=== PATIENT | female | born 1960 | race Caucasian/White ===

== ENCOUNTER → 2021-05-02 14:36 | Outpatient (CLI) | payer OTHER, SELFPAY | PROVIDERS: PCP Student in an Organized Health Care Education/Training Program; Referring Provider Student in an Organized Health Care Education/Training Program; Visit Provider Student in an Organized Health Care Education/Training Program | DX: Z78.0 Asymptomatic menopausal state (principal); Z13.820 Encounter for screening for osteoporosis; M81.0 Age-related osteoporosis without current pathological fracture | CPT/HCPCS: 77080 ==

== ENCOUNTER → 2021-05-07 17:03 | Outpatient (CLI) | payer OTHER, SELFPAY ==
--- NOTE | 2021-05-07 | DI.MG.S_ITS ---
BILATERAL DIGITAL SCREENING MAMMOGRAM 3D/2D WITH CAD: 05/07/2021 CLINICAL: Routine screening. Comparison is made to exams dated: 09/07/2017 mammogram, 06/05/2015 mammogram, 06/05/2015 ultrasound, and 02/02/2015 mammogram - outside location. The tissue of both breasts is heterogeneously dense. This may lower the sensitivity of mammography. Current study was also evaluated with a Computer Aided Detection (CAD) system. There are benign post operative findings in the right breast. No significant masses, calcifications, or other findings are seen in either breast. There has been no significant interval change. IMPRESSION: BENIGN There is no mammographic evidence of malignancy. A 1 year screening mammogram is recommended. This exam was interpreted at Station ID: [id number]. NOTE: For mammograms, a report in lay terms will be sent to the patient. Approximately 15% of breast malignancies will not be visualized mammographically. In the management of a palpable breast mass, a negative mammogram must not discourage biopsy of a clinically suspicious lesion. Electronically Signed By: Gwendolyn boone/rita:05/08/2021 09:20:16 letter sent: Normal Exam ACR BI-RADS Category 2: Benign Finding(s) 3342F
== END ==
PROVIDERS: PCP Student in an Organized Health Care Education/Training Program; Referring Provider Student in an Organized Health Care Education/Training Program; Visit Provider Student in an Organized Health Care Education/Training Program
DX: Z12.31 Encounter for screening mammogram for malignant neoplasm of breast (principal)
CPT/HCPCS: 77063; 77067

== ENCOUNTER → 2021-07-03 13:59 | Outpatient (CLI) | payer OTHER, SELFPAY ==
[2021-07-03 15:16] LABS: COVID19 -Nasal RAPID Negative (Negative)
== END ==
PROVIDERS: PCP Student in an Organized Health Care Education/Training Program; Visit Provider Family Medicine Sleep Medicine
DX: Z01.812 Encounter for preprocedural laboratory examination (principal); Z20.822 Contact with and (suspected) exposure to COVID-19
CPT/HCPCS: 87635; C9803

== ENCOUNTER → 2021-07-24 14:04 | Outpatient (CLI) | payer OTHER, SELFPAY ==
[2021-07-24 14:33] LABS: COVID19 -Nasal RAPID Negative (Negative)
== END ==
PROVIDERS: PCP Student in an Organized Health Care Education/Training Program; Referring Provider Student in an Organized Health Care Education/Training Program; Visit Provider Student in an Organized Health Care Education/Training Program
DX: Z20.822 Contact with and (suspected) exposure to COVID-19 (principal)
CPT/HCPCS: 87635; C9803

== ENCOUNTER 2021-07-26 12:26 | Day surgery (SDC) | payer OTHER, SELFPAY ==
--- NOTE | 2021-07-26 12:12 | PM.PREOP ---
Pre-operative Note COVID-19 COVID-19 status: Negative Result date/Date tested (Pos, Neg/Pending): 07/24/21 Interval Note History & Physical reviewed/Exam performed by Physician: Yes Changes to H&P: No ASA Class (for procedural sedation): II
--- NOTE | 2021-07-26 12:13 | PM.OP.COLON ---
Operative Date/Time/Diagnoses Date of procedure: 07/26/21 Procedure Notes SCOAP/Timeout: 1:52 p.m. Procedure in detail: ENDOSCOPIST: Masha Cruz MD Sedation RN: Salma Rutledge RN Sedation start time: 1:53 p.m. Sedation end time: 2:21 p.m. PROCEDURE: Colonoscopy INDICATIONS: 1. Family history of colon cancer, father 2. Screening for colon cancer MEDICATION: Levsin 0.125 mg sublingual, incremental doses of Versed and fentanyl until appropriate level sedation achieved. ASA CLASS: 2 CECAL WITHDRAWAL TIME: 6 minutes COMPLICATIONS: None. EXTENT OF PROCEDURE: Cecum. QUALITY OF PREP: Good with portions of liquid stool. PROCEDURE: Prior to insertion of the colonoscope, a digital rectal examination was accomplished with circumferential palpation of the distal rectal mucosa without significant findings being noted. The high-definition pediatric colonoscope was passed into the rectum in the usual fashion and advanced over to the cecum without difficulty. The ileocecal valve, appendiceal stoma, and medial wall all could be inspected and no abnormalities were seen. ASCENDING COLON: As the colonoscope was withdrawn, care was taken to expose and inspect the haustral folds and no abnormalities were seen. HEPATIC FLEXURE: Normal, no polyps, diverticula or other abnormalities. TRANSVERSE COLON: Normal, no polyps, diverticula or other abnormalities. DESCENDING COLON: Normal, no polyps, diverticula or other abnormalities. SIGMOID COLON: Normal, no polyps, diverticula or other abnormalities. RECTUM: Normal. J maneuver was produced. There was no significant perianal disease. The J maneuver was broken. The remainder of the rectum was inspected and there was no external hemorrhoid disease. The scope was withdrawn. IMPRESSION: 1. Normal colonoscopy PLAN: 1. Repeat colonoscopy in 5 years. The possibility of a missed lesion including a malignancy has been discussed with the patient previously. Potential alarm symptoms have been discussed and should be reported immediately.
[2021-07-26 12:40] VITALS: BP 118/75; PULSE 83; RESP 16; TEMP 36.8; O2SAT 97; BMI 22.3
[2021-07-26] MEDS: LACTATED RINGERS 1,000 ML 200 ML IV (13:12)
[2021-07-26] MEDS: HYOSCYAMINE 0.125 MG TABLET PO (13:14)
[2021-07-26] MEDS: fentaNYL 250 MCG/5 ML INJ 125 MCG IV (14:22)
[2021-07-26] MEDS: MIDAZOLAM 5 MG/5 ML VIAL IV (14:22)
[2021-07-26 14:27] VITALS: BP 122/71; PULSE 73; RESP 18; TEMP 36.6; O2SAT 99
[2021-07-26 14:32] VITALS: BP 114/71; PULSE 72; RESP 14; O2SAT 100
[2021-07-26 14:35] VITALS: BP 116/68; PULSE 69; RESP 18; O2SAT 99
[2021-07-26 14:47] VITALS: BP 128/83; PULSE 76; RESP 14; O2SAT 100
[2021-07-26 14:58] VITALS: BP 136/80; PULSE 78; RESP 16; TEMP 36.4; O2SAT 98
== END 2021-07-26 15:08 | disposition home or self-care (01) ==
PROVIDERS: PCP Student in an Organized Health Care Education/Training Program; Referring Provider Student in an Organized Health Care Education/Training Program; Visit Provider Student in an Organized Health Care Education/Training Program
PROC: 0DJD8ZZ Inspection of Lower Intestinal Tract, Via Natural or Artificial Opening Endoscopic (ICD-10-PCS; CPT 45378; principal; 2021-07-26 13:45)
DX: Z12.11 Encounter for screening for malignant neoplasm of colon (principal); Z80.0 Family history of malignant neoplasm of digestive organs
CPT/HCPCS: 45378; J2250; J3010

== ENCOUNTER → 2023-07-09 15:16 | Outpatient (CLI) | payer OTHER, SELFPAY ==
--- NOTE | 2023-07-09 15:17 | DI.RAD.S_ITS ---
PROCEDURE: XR DEXA AXIAL SKELETON INDICATIONS: Asymptomatic menopausal state COMPARISON: [facility], CR, XR DEXA AXIAL SKELETON, 05/02/2021, 15:05. FINDINGS: Lumbar Spine: Bone mineral density is 0.734 g/cm2, T score -2.8, statistically significant increase when compared to the prior exam by 10.0 %. Left Hip: Bone mineral density 0.694 g/cm2, T score -2.0, statistically significant increased when compared to the prior exam by 10.2 %. Left Femoral Neck: Bone mineral density is 0.592 g/cm2, T score -2.3. Right Hip: Bone mineral density is 0.667 g/cm2, T score -2.3, statistically significant increase when compared to the prior exam by 8.1 %. Right Femoral Neck: Bone mineral density is 0.571 g/cm2, T score -2.5. Fracture Risk Calculation (when applicable): FRAX score not reported due to osteoporosis. (T score greater or equal to -1.0 to: NORMAL) (T score from -1.1 to -2.4: OSTEOPENIA) (T score less than or equal to -2.5: OSTEOPOROSIS) IMPRESSION: 1. By WHO criteria, the patient has osteoporosis. 2. Interval statistically significant increase in bone mineral density of the lumbar spine and bilateral hips when compared to the exam from 05/02/2021. Follow-up guidelines as follows: Osteoporosis: Consider a repeat DEXA and Vertebral Fracture Assessment (VFA) exam in 2 years or sooner if medically necessary, to reassess this patient's status. Osteopenia: Consider a repeat DEXA in 2-3 years to reassess this patient's status, or if there is a new clinical indication. Normal: Consider a repeat DEXA in 5 years or sooner, or if there is a new clinical indication. Approved by: Angel Nelson M.D. on 07/09/2023 at 22:01
--- NOTE | 2023-07-09 15:17 | DI.MG.S_ITS ---
BILATERAL DIGITAL SCREENING MAMMOGRAM 3D/2D WITH CAD: 07/09/2023 CLINICAL: Routine screening. Family history of breast cancer. Comparison is made to exams dated: 05/07/2021 mammogram - [facility] and 09/07/2017 mammogram - outside location. Both breasts are heterogeneously dense, which may obscure small masses (category c / 51-75% glandular tissue). Current study was also evaluated with a Computer Aided Detection (CAD) system. There are benign post operative findings and biopsy clip in the right breast. No significant masses, calcifications, or other findings are seen in either breast. There has been no significant interval change. IMPRESSION: BENIGN There is no mammographic evidence of malignancy. A 1 year screening mammogram is recommended. Based on the Tyrer Cuzick model (a risk assessment model) the patient's lifetime risk is 19.6% and her 10 year risk is 9.1%. According to the ACR, ACS, and NCCN guidelines, an annual breast MRI exam along with mammogram is recommended if the patient's lifetime risk is 20% or greater. This exam was interpreted at Station ID: [id number]. NOTE: For mammograms, a report in lay terms will be sent to the patient. Approximately 15% of breast malignancies will not be visualized mammographically. In the management of a palpable breast mass, a negative mammogram must not discourage biopsy of a clinically suspicious lesion. Electronically Signed By: Rasheed alfredo/rita:07/10/2023 10:04:20 letter sent: Normal Exam ACR BI-RADS Category 2: Benign Finding(s) 3342F
== END ==
PROVIDERS: PCP Registered Nurse; Referring Provider Registered Nurse; Visit Provider Registered Nurse
DX: Z12.31 Encounter for screening mammogram for malignant neoplasm of breast (principal); Z80.3 Family history of malignant neoplasm of breast; R92.333 Mammographic heterogeneous density, bilateral breasts; Z13.820 Encounter for screening for osteoporosis; M81.0 Age-related osteoporosis without current pathological fracture; Z78.0 Asymptomatic menopausal state
CPT/HCPCS: 77063; 77067; 77080

== ENCOUNTER → 2024-11-12 08:12 | Outpatient (CLI) | payer OTHER, SELFPAY ==
--- NOTE | 2024-11-12 08:14 | DI.MG.S_ITS ---
MM screening mammo BI: 11/12/2024. BI-RADS: 0 CLINICAL: 64-year old female for bilateral screening mammogram. Tyrer-Cuzick lifetime risk of 12.3%. Current reported family history of breast cancer: sister. The patient had a prior right breast biopsy. PRIOR EXAMS 07/09/2023, 05/07/2021, outside prior 09/07/2017. MAMMOGRAPHY TECHNIQUE: 2D and 3D (tomosynthesis) digital mammographic views obtained, with additional images as needed for full coverage. Current study was also evaluated with a Computer Aided Detection (CAD) system. DENSITY B. There are scattered areas of fibroglandular density. MAMMOGRAPHY FINDINGS Right: MLO only, Abutting Pectoralis, Posterior depth: Asymmetry needing additional imaging evaluation. Right: Biopsy marker present on the right. Benign-appearing post-surgical changes noted on the right. Left: No suspicious mass, asymmetry, microcalcification, or other abnormality seen. IMPRESSION: Right (Asymmetry): MLO only, Abutting Pectoralis, Posterior depth * Incomplete - asymmetry needing additional imaging evaluation. Left * No evidence of malignancy. RECOMMENDATIONS Right: MLO only, Abutting Pectoralis, Posterior depth * Further evaluation with diagnostic mammography and diagnostic ultrasound. Ultrasound to be performed only if needed. OVERALL ASSESSMENT CATEGORY BI-RADS-0: Incomplete - Need Additional Imaging Evaluation. ELECTRONICALLY SIGNED: Surekha Joiner M.D. on 11/24/2024 at 09:14:38 AM PT Interpreting Station ID: [id number]
== END ==
PROVIDERS: PCP Registered Nurse; Referring Provider Registered Nurse; Visit Provider Registered Nurse
DX: Z12.31 Encounter for screening mammogram for malignant neoplasm of breast (principal); Z80.3 Family history of malignant neoplasm of breast
CPT/HCPCS: 77063; 77067

== ENCOUNTER → 2025-01-09 09:19 | Outpatient (CLI) | payer OTHER, SELFPAY ==
--- NOTE | 2025-01-09 09:20 | DI.MG.S_ITS ---
US breast RT limited, MM diagnostic mammo unilat RT: 01/09/2025 BI-RADS: 4C CLINICAL: 64-year old female for right diagnostic mammogram and right diagnostic breast ultrasound that is a recall from screening on 11/12/2024. Tyrer-Cuzick lifetime risk of 12.2%. Current reported family history of breast cancer: sister. The patient had a prior right breast biopsy. PRIOR EXAMS Mammogram(s): 11/12/2024, 07/09/2023, 05/07/2021, 09/07/2017. MAMMOGRAPHY TECHNIQUE: 2D and 3D (tomosynthesis) digital mammographic views obtained, with additional images as needed for full coverage. Current study was also evaluated with a Computer Aided Detection (CAD) system. ULTRASOUND TECHNIQUE Real-time gabriel scale and color doppler imaging of the area of clinical interest was performed with image documentation. Right targeted breast ultrasound of the area of clinical interest and the axilla was performed with image documentation. DENSITY Right: B. There are scattered areas of fibroglandular density. MAMMOGRAPHY FINDINGS Right (finding-1): Upper Inner Quadrant, Posterior depth, measuring 0.5cm. Previous report: MLO only, Abutting Pectoralis: Correlating with findings on screening mammogram, there is a developing focal asymmetry present. ULTRASOUND FINDINGS Right (finding-1): Upper Inner at 12:30, 5 cm from nipple, measuring 0.4 x 0.3 x 0.5 cm. Previous report: MLO only, Abutting Pectoralis: Correlating with findings on mammogram there is an irregularly shaped, indistinct, hypoechoic mass. Doppler shows no vascularity. Right: Axilla: No abnormal lymph nodes are seen in the axilla. IMPRESSION: Right (Mass): Upper Inner at 12:30, 5 cm from nipple, measuring 0.4 x 0.3 x 0.5 cm. Previous report: MLO only, Abutting Pectoralis * High Suspicion for Malignancy. RECOMMENDATIONS Right: Upper Inner at 12:30, 5 cm from nipple * Ultrasound-guided biopsy for further evaluation. COMMENTS: Findings and recommendations were conveyed to the patient during today's evaluation by Dr. Herrera. OVERALL ASSESSMENT CATEGORY BI-RADS-4: Suspicious. ELECTRONICALLY SIGNED: Surekha Joiner M.D. on 01/09/2025 at 10:38:50 AM PT Interpreting Station ID: [id number]
== END ==
LOC: MAMMO 09:19
PROVIDERS: PCP Registered Nurse; Referring Provider Registered Nurse; Visit Provider Registered Nurse
DX: R92.8 Other abnormal and inconclusive findings on diagnostic imaging of breast (principal); N63.12 Unspecified lump in the right breast, upper inner quadrant; R92.321 Mammographic fibroglandular density, right breast; Z80.3 Family history of malignant neoplasm of breast
CPT/HCPCS: 76642; 77065; G0279

== ENCOUNTER → 2025-01-25 08:00 | Outpatient (CLI) | payer OTHER, SELFPAY ==
--- NOTE | 2025-01-25 08:01 | DI.US.S_ITS ---
Right US bx breast perc w vac device: 01/25/2025. Rad-Path Correlation: Pending CLINICAL: 64-year old female for right procedure that resulted from diagnostic mammogram on 01/09/2025. Tyrer-Cuzick lifetime risk of 12.2%. Current reported family history of breast cancer: sister. The patient had a prior right breast biopsy. PRIOR EXAMS Mammogram(s): 01/09/2025, 11/12/2024. Breast Ultrasound(s): 01/09/2025. Two Other Exams on 07/09/2023, 05/07/2021. CONSENT Risks including but not limited to bleeding and infection, benefits and alternatives were discussed with the patient. The patients agreed to the procedure, reported no allergy to local anesthesia and signed the consent form. ROUTINE Right: Patient positioned in the sitting position, prepped and draped in the usual manner using sterile technique. TECHNIQUE Right Breast: Upper Inner at 12:30: Procedure: Ultrasound-guided core biopsy of a mass. Device: Core biopsy instrument. Anesthesia: Local anesthesia obtained using 5 ml 1%-lidocaine. Secondary local anesthesia obtained using 5 ml 1%-lidocaine with epinephrine. Passes: 5. Specimens: 5. Post-procedure imaging: Post-procedure mammogram. Rad/Path Correlation: Pending receipt of pathology report. Conclusion: Ultrasound-guided Core biopsy with post-procedure mammogram, Right Breast: Upper Inner at 12:30 COMPLICATIONS: No complications were encountered while the patient was in our department. DISPOSITION The patient left our department in good condition with aftercare instructions and urged to contact us should any problem arise. SUMMARY Right Breast: Upper Inner at 12:30: Ultrasound-guided core biopsy of a mass. PATHOLOGY Right Breast: Upper Inner at 12:30: Radiologist-Pathologist Correlation: Pending receipt of pathology report. ELECTRONICALLY SIGNED: Destin Soares M.D. on 01/31/2025 at 08:45:30 AM PT Interpreting Station ID: [id number]
--- NOTE | 2025-01-25 08:02 | DI.MG.S_ITS ---
MM clip placement RT: 01/25/2025. BI-RADS: None CLINICAL: 64-year old female for right diagnostic mammogram that is a recall from screening on 11/12/2024. Tyrer-Cuzick lifetime risk of 12.2%. Current reported family history of breast cancer: sister. The patient had a prior right breast biopsy. PRIOR EXAMS Mammogram(s): 01/09/2025, 11/12/2024. Breast Ultrasound(s): 01/09/2025. Two Other Exams on 07/09/2023, 05/07/2021. MAMMOGRAPHY TECHNIQUE: 2D and/or 3D (tomosynthesis) digital mammographic views obtained, with additional images as needed for full coverage. DENSITY Right: B. There are scattered areas of fibroglandular density. MAMMOGRAPHY FINDINGS Right: Upper Inner at 12:30, 5 cm from nipple, previously measuring (01/09/2025) 0.4 x 0.3 x 0.5cm: There is an (Unspecified) biopsy marker in targeted location. IMPRESSION: Right * Biopsy marker present. OVERALL ASSESSMENT CATEGORY BI-RADS None: This exam requires no BI-RADS. ELECTRONICALLY SIGNED: Destin Soares M.D. on 01/31/2025 at 08:46:47 AM PT Interpreting Station ID: [id number]
--- NOTE | 2025-01-25 09:28 | PATH_ITS ---
[facility] Accession Number: [id number] No. of containers..01 Tissue . 01 Material submitted: . breast - RT BREAST . 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 Combined total Stuart histologic score is 5 out of 9 possible (tubule formation 2 out of 3, nuclear pleomorphism 2 out of 3, and mitotic index 1 out of 3). Overall grade: Grade 1 (low grade). In situ carcinoma: Ductal-type, with cribriform architecture and nuclear grade 1-2, without comedonecrosis. Lymphovascular invasion: Not identified. Microcalcifications: Rare microcalcification present in the invasive tumor. Greatest linear extent of invasive carcinoma: 3.5 mm as measured from the glass slide. Predictive markers: Estrogen and Progesterone Receptors positive, HER2 negative for expression by immunohiustochemistry, and Ki67 low, please see microscopic description for details. MRV 01/31/2025 1345 Local . 01 Comment: As part of ongoing it quality analyst, this case is also reviewed by Dr. Sharona Vergara, who agrees with the interpretation. . Results were called by Dr. Willie Hernandez, olive Mariano, Steam Service Inspector, on 01/30/2025, at 2:10 p.m. . 01 Electronically signed: . Evaristo Hernandez MD, Pathologist NPI- [id number] . 01 Gross description: . Received in formalin with two patient identifiers, and right breast are three 0.5-1.0 cm in length by each 0.1 cm in diameter fibrofatty tissue fragments, entirely submitted in A1. . The specimen was placed in formalin at 8:49 a.m. (per container) on 01/25/2025 for a total formalin fixation time of 13 hours 11 minutes. (JF:[id number]) /MRV 01/26/2025 1832 Local . 01 Microscopic: . E-cadherin immunostain is performed and is strong, diffuse positive on the invasive carcinoma, supporting ductal differentiation. JAH-3 is uniform strong positive, supporting breast origin. P63 and myosin immunostains show absence of staining on the myoepithelial cell layer of the infiltrating tumor cells (with internal control working well). . Estrogen Receptor (SP1): Positive, strong intensity, 91-100%. Progesterone Receptor (1E2): Positive, strong intensity, 91-100%. HER2 (4B5): Negative (1+). Proliferation marker Ki67: Low, less than 5%. . *Internal controls for ER and LA are positive. Cold ischemic time is not provided. The scoring criteria for breast biomarkers by immunohistochemistry is based on the ASCO/CAP guidelines (Betty AC et al, J Clin Oncol: 2017Aug 25;36(20):2820-4680 and Kenia ME et al, Arch Pathol Lab Med: 2009;134(6):907-22). Deparaffinized sections of formalin fixed tissue (along with appropriate positive controls) are incubated with the above antibody(s). Using the automated Kerr stainer, tissue is incubated with the designated antibody which is then localized by a non-biotin, dual polymer detection system. The external controls are reviewed for appropriate reactivity and found to be adequate. Results on the target cell population are indicated above. These tests have not been validated on decalcified tissue. This test was developed and its performance characteristics determined by [facility]. It has not been cleared or approved by the U.S. Food and Drug Administration. The FDA has determined that such clearance or approval is not necessary. This test is used for clinical purposes. It should not be regarded as investigational or for research. . 01 Pathologist provided ICD-10: C50.911 . 01 CPT . 617868, L36355, R63679, 421049, 776953, 751725, [id number] Specimen Comment: A courtesy copy of this report has been sent to [facility] Pathology Performed at: [address], [place], [place] [id number] MD Lucian De Paz MD Phone: [phone]
== END ==
LOC: US 08:01
PROVIDERS: PCP Registered Nurse; Referring Provider Registered Nurse; Visit Provider Registered Nurse
DX: C50.211 Malignant neoplasm of upper-inner quadrant of right female breast (principal); Z17.0 Estrogen receptor positive status [ER+]; Z17.21 Progesterone receptor positive status; Z80.3 Family history of malignant neoplasm of breast
CPT/HCPCS: 19083; 77065